=== PATIENT | female | born 1970 | race Native Hawaiian/Other Pacific Islander ===

== ENCOUNTER 2017-04-21 16:13 | Emergency (ER) | payer OTHER ==
[~2017-04-21] VITALS: Ht 165.1 cm; Wt 63.5 kg
[2017-04-21 16:25] VITALS: TEMP 98.7
[2017-04-21 16:48] LABS: PLATELET COUNT 284 K/uL (152-353)
[2017-04-21 17:15] VITALS: BP 137/84
== END 2017-04-21 17:33 | disposition home or self-care (01) ==
LOC: ED 16:13
DX: J06.9 Acute upper respiratory infection, unspecified (principal); Z72.0 Tobacco use
CPT/HCPCS: 85027; 87081; 87804; 87880; 96372; 99283; J1100

== ENCOUNTER 2019-10-13 19:56 | Emergency (ER) | payer OTHER ==
[~2019-10-13] VITALS: Ht 165.1 cm; Wt 59.0 kg
[2019-10-13 21:24] LABS: POTASSIUM 3.2 mmol/L (3.6-5.2); SODIUM 137 mmol/L (136-145)
[2019-10-13 21:31] LABS: PLATELET COUNT 251 K/uL (152-353)
[2019-10-13 22:25] VITALS: BP 158/92; TEMP 97.5
== END 2019-10-13 22:25 | disposition home or self-care (01) ==
LOC: ED 19:56
PROVIDERS: Hospitalist
DX: R42 Dizziness and giddiness (principal); E87.6 Hypokalemia; F41.8 Other specified anxiety disorders
CPT/HCPCS: 80053; 80320; 82550; 83880; 84484; 85027; 85610; 85730; 93005; 96360; 99284